=== PATIENT | female | born 1970 | race Caucasian/White ===

== ENCOUNTER → 2016-09-17 | Day surgery (SDC) | payer BC ==
[~2016-09-17] MED LIST: HYDROCODON-ACE1 EAC7 PO; HYDROCODON-ACE1 EAC9 PO; HYDROCODONE-APA1 T55 PO; IBUPROFEN800 MG PO; NEXIUM PO; PEPCID; PREDNISONE; SYNTHROID0.1 MG PO; ZOFRAN ODT4 MG PO
--- NOTE | ~2016-09-17 | OR ---
Unit #: [id number] #: [id number] Patient: ISABEL MIRAMONTES [id number] [address] [place], [place] [address] [id number] O MR#: [id number] NAME: ISABEL MIRAMONTES ROOM: Date of Procedure: 09/17/2016 Admission Date: 09/17/2016 Surgeon: Jonny Street M.D. : 1970 Attending Physician: Jonny Street M.D. Primary Care Physician: Deborah Delgado A.P.R.N. OPERATIVE REPORT REVISED REPORT PREOPERATIVE DIAGNOSES 1. Neck pain. 2. Cervical radiculopathy. 3. Degenerative cervical disk disease with myelopathy. POSTOPERATIVE DIAGNOSES 1. Neck pain. 2. Cervical radiculopathy. 3. Degenerative cervical disk disease with myelopathy. PROCEDURE PERFORMED Cervical epidural steroid injection with intravenous sedation and fluoroscopic guidance for needle localization. INDICATIONS FOR PROCEDURE The patient is a 45-year-old female with neck and periscapular pain, upper extremity numbness has been worsening over course a couple of years. She has failed to settle with conservative medical and rehabilitative management. Workup demonstrated neural foraminal stenosis worse to the right at C4-C5 and the left at C5-C6. Based on symptoms, pathology, and response to treatment, plan is for trial of epidural steroids. Risks and benefits of all which have been reviewed. DESCRIPTION OF PROCEDURE The patient was placed in a seated position. Standard monitors were applied. 2 mg of Versed were given for sedation and anxiolysis, which were adequate. Vital signs remained stable. Sterile prep and drape then of the cervical area was performed. The skin then at the C6 level was localized with 1% lidocaine. An 18-gauge MenoGeniXtead needle was then advanced via hanging drop technique and fluoroscopic guidance in toward the epidural space. After confirming proper needle tip positioning with fluoroscopy and radiographic contrast, a dose of 80 mg of Depo-Medrol and 2 mL of 0.25% bupivacaine were deposited. The patient tolerated the procedure otherwise well and was discharged to the recovery room in stable condition. Dictated by... Jonny Street M.D. Unit #: [id number] #: [id number] Patient: ISABEL MIRAMONTES LHP/modl TD: 09/18/2016 00:32 JOB #: [id number] CC: Celio Handley/invision Please Delete OPERATIVE REPORT Page 1 of [address] MD X PROCEDURE OPERATIVE NOTE
== END | disposition home or self-care (01) ==
LOC: CCSC 09:21
DX: M50.021 Cervical disc disorder at C4-C5 level with myelopathy (principal); M50.121 Cervical disc disorder at C4-C5 level with radiculopathy
CPT/HCPCS: J1040; J2250

== ENCOUNTER → 2016-09-24 | Day surgery (SDC) | payer BC ==
--- NOTE | ~2016-09-24 | OR ---
Unit #: [id number] #: [id number] Patient: ISABEL MIRAMONTES [id number] [address] [place], [place] [address] [id number] O MR#: [id number] NAME: ISABEL MIRAMONTES ROOM: Date of Procedure: 09/24/2016 Admission Date: 09/24/2016 Surgeon: Jonny Street M.D. : 1970 Attending Physician: Jonny Street M.D. Primary Care Physician: Deborah Delgado A.P.R.N. OPERATIVE REPORT PREOPERATIVE DIAGNOSES 1. Neck pain. 2. Cervical radiculopathy. 3. Degenerative cervical disk and spine disease. POSTOPERATIVE DIAGNOSES 1. Neck pain. 2. Cervical radiculopathy. 3. Degenerative cervical disk and spine disease. PROCEDURE PERFORMED Cervical epidural steroid injection with intravenous sedation and fluoroscopic guidance for needle localization. INDICATIONS FOR PROCEDURE The patient is a 45-year-old female, who presented with neck, periscapular, left greater than right upper extremity pain and numbness. Workup demonstrated multilevel degenerative cervical disk disease with significant left neural foraminal stenosis at C4-C5 and right at the C5-C6 level. Initial epidural steroid injection resulted overall 50% settling of her symptom complex. Based on her good partial response, we are going to proceed with a second injection today. DESCRIPTION OF PROCEDURE The patient was placed in a seated position. Standard monitors were applied. 2 mg of Versed were given for sedation and anxiolysis, which were adequate. Vital signs remained stable. Sterile prep and drape then of the cervical area was performed. The skin then at the C5-C6 level was localized with 1% lidocaine. An 18-gauge Biofortunatead needle was then advanced via loss of resistance technique and fluoroscopic guidance in toward the epidural space. After confirming proper positioning with fluoroscopy and radiographic contrast, 80 mg of Depo-Medrol and 4 mL of 0.125% bupivacaine were deposited. The patient tolerated the procedure otherwise well and was discharged to the recovery room in stable condition. Dictated by... Celio SwansonP/nannettel TD: 09/24/2016 23:26 Unit #: [id number] #: [id number] Patient: ISABEL MIRAMONTES JOB #: [id number] CC: Mich/andreina Please Delete OPERATIVE REPORT X Jonny Street MD X PROCEDURE OPERATIVE NOTE
--- NOTE | ~2016-09-24 | OR ---
Unit #: [id number] #: [id number] Patient: ISABEL MIRAMONTES [id number] [address] [place], [place] [address] [id number] O MR#: [id number] NAME: ISABEL MIRAMONTES ROOM: Date of Procedure: 09/17/2016 Admission Date: 09/24/2016 Surgeon: Jonny Street M.D. : 1970 Attending Physician: Jonny Street M.D. Primary Care Physician: Deborah Delgado A.P.R.N. OPERATIVE REPORT PREOPERATIVE DIAGNOSES 1. Neck pain. 2. Cervical radiculopathy. 3. Degenerative cervical disk disease with myelopathy. POSTOPERATIVE DIAGNOSES 1. Neck pain. 2. Cervical radiculopathy. 3. Degenerative cervical disk disease with myelopathy. PROCEDURE PERFORMED Cervical epidural steroid injection with intravenous sedation and fluoroscopic guidance for needle localization. INDICATIONS FOR PROCEDURE The patient is a 45-year-old female with neck, periscapular pain, upper extremity numbness that has been worsening over the course of couple of years she had failed to settle conservative, medical, and rehabilitative treatment. Workup demonstrated neuroforaminal stenosis worse to the right at C4-C5 and left at C5-C6. Based on her symptoms, pathology, and response to treatment, plan is for trial of cervical epidural steroid injection. Risks and benefits of all which have been reviewed. DESCRIPTION OF PROCEDURE The patient was placed in a seated position. Standard monitors were applied. 2 mg of Versed were given for sedation and anxiolysis, which were adequate. Vital signs remained stable. Sterile prep and drape then of the cervical area was performed. The skin then at the C6 level was localized with 1% lidocaine. An 18-gauge Savortead needle was then advanced via hanging drop technique and fluoroscopic guidance in toward the epidural space. After confirming proper needle tip positioning with fluoroscopy and radiographic contrast, a dose of 80 mg Depo-Medrol and 2 mL of 0.25% bupivacaine were deposited. The patient tolerated the procedure well and was discharged to the recovery room in stable condition. Dictated by... Celio Swanson/tomas TD: 09/24/2016 23:22 Unit #: [id number] #: [id number] Patient: ISABEL MIRAMONTES JOB #: [id number] CC: Manny Dunn M.D. OPERATIVE REPORT X Jonny Street MD X PROCEDURE OPERATIVE NOTE
== END | disposition home or self-care (01) ==
LOC: CCSC 08:24
DX: M50.121 Cervical disc disorder at C4-C5 level with radiculopathy (principal); Z88.1 Allergy status to other antibiotic agents
CPT/HCPCS: J1040; J2250

== ENCOUNTER → 2016-10-01 | Day surgery (SDC) | payer BC ==
--- NOTE | ~2016-10-01 | OR ---
Unit #: [id number] #: [id number] Patient: ISABEL MIRAMONTES [id number] [address] [place], [place] [address] [id number] O MR#: [id number] NAME: ISABEL MIRAMONTES ROOM: Date of Procedure: 10/01/2016 Admission Date: 10/01/2016 Surgeon: Jonny Street M.D. : 1970 Attending Physician: Jonny Street M.D. Primary Care Physician: Deborah Delgado A.P.R.N. OPERATIVE REPORT PREOPERATIVE DIAGNOSES 1. Cervical disk herniation. 2. Degenerative cervical disk disease. 3. Cervical spondylosis. 4. Neck pain. 5. Cervical radiculopathy. POSTOPERATIVE DIAGNOSES 1. Cervical disk herniation. 2. Degenerative cervical disk disease. 3. Cervical spondylosis. 4. Neck pain. 5. Cervical radiculopathy. PROCEDURE PERFORMED Cervical epidural steroid injection with intravenous sedation and fluoroscopic guidance for needle localization. INDICATIONS FOR PROCEDURE The patient is a 45-year-old female, who presented with neck, periscapular, and intermittent left greater than right upper extremity discomfort and numbness. Workup demonstrated degenerative disk disease, most significant at C4-C5 and C5-C6. There is left neural foraminal narrowing at the C4-C5 level and right at C5-C6. After failing attempts of conservative treatment, plan is for trial of epidural steroids. Two were done in the last few weeks. First injection gave her 50% improvement of symptom complex. Second injection given her additive improvement. She still does have discomfort, so we are going to proceed with a final injection at this point. Note, the patient did have epidurals for lumbar spine in the past and did well with those injections about 8 years ago and continues to do well. DESCRIPTION OF PROCEDURE The patient was placed in a seated position. Standard monitors were applied. 2 mg of Versed were given for sedation and anxiolysis, which were adequate. Vital signs remained stable. Sterile prep and drape then of the cervical area was performed. The skin then at the C5-C6 level was localized with 1% lidocaine. An 18-gauge SaveFans! needle was then advanced via hanging drop technique and fluoroscopic guidance in toward the epidural space. After confirming proper positioning with fluoroscopy and radiographic contrast, 80 mg Depo-Medrol and 2 mL of 0.125% bupivacaine were deposited. The patient tolerated the procedure otherwise well and Unit #: [id number] #: [id number] Patient: ISABEL MIRAMONTES was discharged to the recovery room in stable condition. Dictated by... Celio Swanson/tomas TD: 10/01/2016 22:52 JOB #: [id number] OPERATIVE REPORT Page 1 of [address] MD X PROCEDURE OPERATIVE NOTE
== END | disposition home or self-care (01) ==
LOC: CCSC 07:39
DX: M50.121 Cervical disc disorder at C4-C5 level with radiculopathy (principal); M47.22 Other spondylosis with radiculopathy, cervical region; Z88.1 Allergy status to other antibiotic agents
CPT/HCPCS: J1040; J2250

== ENCOUNTER → 2017-01-24 | Outpatient (CLI) | payer BC ==
--- NOTE | ~2017-01-24 | CT5 ---
[facility] A Service of [facility] & [facility] RADIOLOGY TEXT RESULTS PATIENT: ISABEL MIRAMONTES LOCATION: CCAT : [birth year] UNIT #: [id number] AGE: [address]: Deborah Delgado APRN SEX: F ORDER DR: [id number] [facility] [address] [place], [place] [address] [id number] O MR#: [id number] Acc #: [id number] NAME: ISABEL MIRAMONTES : 1970 SEX: F STUDY DATE/TIME: 01/24/2017 8:36 UNIT: [facility] ROOM: STUDY DESCRIPTION: CT Abdomen W Cont Attending Physician: Deborah Delgado A.P.R.N. Referring Physician: Deborah Delgado A.P.R.N. Ordering Physician: Deborah Delgado A.P.R.N. Primary Care Physician: Deborah Delgado A.P.R.N. MEDICAL IMAGING REPORT This report is preliminary unless electronic signature is present EXAM CT of the abdomen with contrast HISTORY Mid-abdominal pain for bbf-jd-ledfx months. TECHNIQUE CT of the abdomen only was performed following the administration of oral and IV contrast. Coronal and sagittal reformatted images were obtained. This CT exam was performed with one or more of the following radiation dose reduction techniques: automatic exposure control, adjustment of mA and/or kV according to patient size, and iterative reconstruction. COMPARISON STUDIES No comparisons available. FINDINGS Lung bases are clear. Tiny nonspecific hyperdensity in the liver on image 17 measures about 8 mm. Differential diagnosis includes a flash-filling hemangioma, FNH, or area of vascular shunting. The gallbladder is unremarkable. The spleen is unremarkable. The kidneys are unremarkable. There is a small adrenal nodule on the right measuring 1.4 cm. It is indeterminate on this study and may be an adenoma. The pancreas is unremarkable. There is some thickening of a segment of jejunum within the left side the abdomen. No definite bowel obstruction. There is thickening of the terminal ileum and also of the adjacent cecum within the right lower quadrant. There are adjacent enlarged lymph nodes. Normal appendix. No evidence of fluid collection. The bone windows are unremarkable. IMPRESSION [facility]. [facility] A Service of [facility] & [facility] RADIOLOGY TEXT RESULTS PATIENT: ISABEL MIRAMONTES LOCATION: [facility] : [birth year] UNIT #: [id number] AGE: [address]: Deborah Delgado APRN SEX: F ORDER DR: 1. There is thickening of the terminal ileum and also of the adjacent cecum in the region of the ileocecal valve with adjacent lymphadenopathy and inflammatory stranding. There is also thickening of a segment of jejunum on the left side of the abdomen. Differential diagnosis includes inflammatory bowel disease (Crohn disease), possibly infectious process or possibly malignancy, although I would favor inflammatory bowel disease. Regardless, I would recommend GI consultation and evaluation with endoscopy. 2. There is an indeterminate right adrenal nodule measuring 1.4 cm. This may be a small adenoma. It could be evaluated with adrenal gland MR or CT. 3. Tiny 8 mm hyperdense focus in the liver may be a tiny flash-fill hemangioma, tiny FNH or area of vascular shunting. Dictated by... Yair Adams M.D. THIS IS AN ELECTRONICALLY VERIFIED REPORT Yair Adams M.D. at 01/26/2017 12:08 PM AMAN/jose TD: 01/25/2017 12:51 JOB #: [id number] MEDICAL IMAGING REPORT Page 1 of 1 COPY
[2017-01-24 11:26] LABS: POC - CREATININE 0.74 mg/dL (0.44-1.03); POC - GFR >60.0 mL/min (>60)
== END | disposition home or self-care (01) ==
LOC: CCAT 06:50
PROVIDERS: Nurse Practitioner
DX: K59.00 Constipation, unspecified (principal)
CPT/HCPCS: 74160; 82565; Q9967

== ENCOUNTER → 2017-02-13 | Outpatient (CLI) | payer BC ==
--- NOTE | ~2017-02-13 | MR2 ---
[facility] A Service of [facility] & [facility] RADIOLOGY TEXT RESULTS PATIENT: ISABEL MIRAMONTES LOCATION: [facility] : [birth year] UNIT #: [id number] AGE: [address]: Deborah Delgado APRN SEX: F ORDER DR: [id number] [facility] [address] [place], [place] [address] [id number] O MR#: [id number] Acc #: [id number] NAME: ISABEL MIRAMONTES : 1970 SEX: F STUDY DATE/TIME: 02/13/2017 17:44 UNIT: [facility] ROOM: STUDY DESCRIPTION: MR Abdomen WWo Cont Attending Physician: Deborah Delgado A.P.R.N. Referring Physician: Deborah Delgado A.P.R.N. Ordering Physician: Deborah Delgado A.P.R.N. Primary Care Physician: Deborah Delgado A.P.R.N. MRI CENTER REPORT This report is preliminary unless electronic signature is present. EXAM MRI abdomen adrenal protocol with and without contrast, 02/13/2017 INDICATION 46-year-old female with mid abdominal pain between the breasts and umbilical region for the past 2 months and constipation. No history of malignancy. CT 01/24/2017 demonstrated a right adrenal nodule for which MRI was request for further assessment. Enhancing focus in the liver as well on the prior CT. TECHNIQUE Multiplanar, multisequence MRI of the abdomen was performed before and after the uneventful intravenous administration of 19 mL MultiHance contrast material. COMPARISON None. Correlation is made with CT 01/24/2017 FINDINGS MRI ABDOMEN: Included lung bases are clear. There is no aortic aneurysm or dissection. Incidental circumaortic left renal vein is an anatomic variant. T1 signal of the pancreas maintained. No evidence of acute pancreatitis or pancreas divisum. No intra or extrahepatic biliary duct dilatation. Gallbladder unremarkable. Minimal background fatty infiltration of the liver. There is a right adrenal nodule measuring 12.0 mm. There is signal drop between in and opposed phase T1 images most characteristic of a benign adenoma. This requires no additional follow up. Adrenal glands are otherwise unremarkable. Included spleen unremarkable. Pancreas and kidneys unremarkable. Included liver demonstrates an enhancing focus in segment 8 measuring 12.0 mm. Based on signal and enhancement characteristics, this is most characteristic of a benign hemangioma with flash filling features. [facility]. [facility] A Service of [facility] RADIOLOGY TEXT RESULTS PATIENT: ISABEL MIRAMONTES LOCATION: [facility] : [birth year] UNIT #: [id number] AGE: [address]: Deborah Delgado APRN SEX: F ORDER DR: Imaging was performed out to the 70-second postcontrast oscar and there are no washout kinetics present. There is a tiny subcapsular cyst in segment 6 of the liver measuring 4.0-5.0 mm. The remainder of the included liver is unremarkable. Hepatic vasculature patent to the extent visualized. No adenopathy. Marrow signal unremarkable. IMPRESSION 1. Benign right adrenal adenoma measures 12.0 mm. No additional follow up necessary. 2. Flash fill hemangioma in segment 8 of the liver measures 12.0 mm. Subcentimeter cyst measuring 5.0 mm in segment 6 of the liver present. 3. Minimal fatty infiltration of the liver. Dictated by... Bobo Madrid M.D. THIS IS AN ELECTRONICALLY VERIFIED REPORT Bobo Madrid M.D. at 02/14/2017 5:15 PM Felice TD: 02/14/2017 09:17 JOB #: [id number] MRI CENTER REPORT Page 1 of 1 COPY
== END | disposition home or self-care (01) ==
LOC: CMRI 02-04 14:00
DX: E27.8 Other specified disorders of adrenal gland (principal); D35.01 Benign neoplasm of right adrenal gland; D18.03 Hemangioma of intra-abdominal structures; R16.0 Hepatomegaly, not elsewhere classified
CPT/HCPCS: 74183; A9577